=== PATIENT | female | born 1990 | race Asian ===

== ENCOUNTER 2018-03-22 22:45 | Emergency (ER) | payer MEDICAID ==
[~2018-03-22] VITALS: Wt 95.3 kg
[2018-03-22 22:47] VITALS: RESP 22
[2018-03-23] MEDS ORDERED: HYDROCODONE/APAP (5/325) TAB PO ONE (01:30)
--- NOTE | 2018-03-23 01:32 | ERD ---
ER Documentation Chief Complaint Chief Complaint DENTAL PAIN X'S 1 DAY HPI 27-year-old female with a history of preeclampsia presents with complaint of molar tooth pain lower right side of mouth for 1 day. States she was given labetalol during her and she stopped taking it 1 month ago. She gave 2 months ago. Since she stopped taking it she states she has been experiencing intermittent headaches. Her OB is Dr. Pabon in [facility] and he is the one who is managing her preeclampsia labetalol. She stated that after her toothache this morning she had an anxiety like reaction in which her heart started racing. Denies any history of seizures, flank pain, chest pain, shortness of breath, worse headache of life, focal neurological deficits, numbness, or weakness. Admits to having anxiety. Denies past medical history besides preeclampsia. Denies allergies. Denies medications. 1 c section. Denies alcohol, tobacco, drug use. Up to date on vaccines. ROS All systems reviewed and are negative except as per history of present illness. Medications Home Meds Active Scripts Hydrocodone/Acetaminophen ([place] 5-325 Tablet) 1 Each Tablet, 1 TAB PO Q6H PRN for PAIN, #10 TAB Prov:NICK SHAH 03/23/18 Labetalol Hcl* (Labetalol Hcl*) 100 Mg Tablet, 100 MG PO BID for HTN for 10 Days, #20 TAB Prov:NICK SHAH 03/23/18 Allergies Allergies: Coded Allergies: No Known Allergy (Unverified , 03/23/18) FmHx Family History: No diabetes, No coronary disease, No other Physical Exam Vitals Vital Signs Date Temp Pulse Resp B/P (MAP) Pulse Ox O2 O2 Flow FiO2 Time Delivery Rate 03/23/18 83 135/95 02:00 (108) 03/22/18 99.1 83 22 186/97 100 22:47 (126) Physical Exam Const: No acute distress Head: Atraumatic Eyes: Normal Conjunctiva. PERRLA. EOMs intact ENT: Normal External Ears, Nose and Mouth. No periapical abscesses noted. All teeth are intact. No lesions in mouth noted. Resp: Clear to auscultation bilaterally Cardio: Regular rate and rhythm, no murmurs Back: No midline or flank tenderness Ext: No cyanosis, or edema Neur: CN 2-12 intact. Strength 5 out of 5 in all extremities. Distal sensation intact. Psych: Normal Mood and Affect Result Diagram: 03/23/18 0135 03/23/18 013 Results 24 hrs Laboratory Tests Test 03/23/18 01:35 03/23/18 01:44 White Blood Count 12.2 10^3/ul Red Blood Count 4.89 10^6/ul Hemoglobin 14.4 g/dl Hematocrit 44.9 % Mean Corpuscular Volume 91.8 fl Mean Corpuscular Hemoglobin 29.4 pg Mean Corpuscular Hemoglobin Concent 32.1 g/dl Red Cell Distribution Width 12.5 % Platelet Count 282 10^3/UL Mean Platelet Volume 9.5 fl Immature Granulocytes % 0.200 % Neutrophils % 82.2 % Lymphocytes % 13.4 % Monocytes % 3.8 % Eosinophils % 0.2 % Basophils % 0.2 % Nucleated Red Blood Cells % 0.0 /100WBC Immature Granulocytes # 0.030 10^3/ul Neutrophils # 10.0 10^3/ul Lymphocytes # 1.6 10^3/ul Monocytes # 0.5 10^3/ul Eosinophils # 0.0 10^3/ul Basophils # 0.0 10^3/ul Nucleated Red Blood Cells # 0.0 10^3/ul Urine Color YELLOW Urine Clarity CLEAR Urine pH 6.0 Urine Specific Carbon 1.021 Urine Ketones NEGATIVE mg/dL Urine Nitrite NEGATIVE mg/dL Urine Bilirubin NEGATIVE mg/dL Urine Urobilinogen NEGATIVE mg/dL Urine Leukocyte Esterase NEGATIVE Magdiel/ul Urine Hemoglobin NEGATIVE mg/dL Urine Glucose NEGATIVE mg/dL Urine Total Protein NEGATIVE mg/dl Sodium Level 140 mmol/L Potassium Level 4.4 mmol/L Chloride Level 107 mmol/L Carbon Dioxide Level 28 mmol/L Anion Gap 5 Blood Urea Nitrogen 16 mg/dl Creatinine 0.96 mg/dl Est Glomerular Filtrat Rate mL/min > 60 mL/min Glucose Level 120 mg/dl Calcium Level 9.8 mg/dl Total Bilirubin 0.1 mg/dl Direct Bilirubin 0.00 mg/dl Indirect Bilirubin 0.1 mg/dl Aspartate Amino Transf (AST/SGOT) 26 IU/L Alanine Aminotransferase (ALT/SGPT) 31 IU/L Alkaline Phosphatase 57 IU/L Total Protein 8.1 g/dl Albumin 4.7 g/dl Globulin 3.40 g/dl Albumin/Globulin Ratio 1.38 POC Beta HCG, Qualitative NEGATIVE Current Medications Medications Dose Sig/Bairon Start Time Status Last (Trade) Ordered Route PRN Stop Time Admin Dose Reason Admin 1 tab ONCE ONCE 03/23/18 DC 03/23/18 Acetaminophen PO 01:30 03/23/18 01:59 / 01:31 Hydrocodone Bitart ([place] (5/325)) Labetalol 100 mg ONCE ONCE 03/23/18 DC 03/23/18 HCl PO 02:00 03/23/18 02:32 (Normodyne) 02:01 Procedures/MDM ER course: CBC, CMP, UA, POC . All within normal limits. [place] and labetalol given. CBC: 27-year-old female with a history of preeclampsia presents with complaint of molar tooth pain lower right side of mouth for 1 day. States she was given labetalol during her and she stopped taking it 1 month ago. She gave 2 months ago. Since she stopped taking it she states she has been experiencing intermittent headaches. Her OB is Dr. Pabon in [facility] and he is the one who is managing her preeclampsia labetalol. She stated that after her toothache this morning she had an anxiety like reaction in which her heart started racing. Denies any history of seizures, flank pain, chest pain, shortness of breath, worse headache of life, focal neurological deficits, numbness, or weakness. Admits to having anxiety. I have low suspicion for hypertensive emergency, end organ damage, eclampsia, periapical abscess, or other emergent problem. Blood pressure went down to 135/94 during the ER course before the labetalol was given. Patient was advised to follow-up with Dr. Romero who was managing her preeclampsia during her using labetalol since this needs to be managed as an outpatient basis by primary care physician. Patient understood and agreed. In addition patient advised to see a dentist regarding tooth pain. Patient given Rx for [place] and labetalol. Patient advised to monitor blood pressure and take labetalol only if blood pressure gets high. Patient was also educated to not breast-feed while taking labetalol and [place] due to risk of harm. Patient agreed to pump and dump and feed baby exclusively formula over the next couple of days while she is taking the labetalol and [place]sound. I also educated patient that labetolol is not typically a first line HTN medication and she needs to follow up with primary care to possibly be put on a different medication. Patient discharged with strict ER precautions. Patient advised to follow up with PMD. All questions answered at discharge. Departure Diagnosis: Primary Impression: Toothache Additional Impression: Hypertension Hypertension type: unspecified Qualified Codes: I10 - Essential (primary) hypertension Condition: Stable NICK SHAH Mar 23, 2018 01:32
[2018-03-23] MEDS ORDERED: HYDR-4011 PO (01:44)
[2018-03-23] MEDS ORDERED: LABE100T7 PO (01:44)
[2018-03-23 02:00] VITALS: BP 135/95; PULSE 83
[2018-03-23] MEDS: LABETALOL 100 MG TAB PO ONE ×2 (02:08→02:32)
== END 2018-03-23 02:48 | disposition home or self-care (01) ==
LOC: FTE 22:45
DX: K08.89 Other specified disorders of teeth and supporting structures (principal); I10 Essential (primary) hypertension
CPT/HCPCS: 80053; 81003; 81025; 85025; Z7502; Z7610; 99283